=== PATIENT | female | born 1970 | race Caucasian/White ===

== ENCOUNTER → 2020-03-30 | Outpatient (CLI) | payer OTHER ==
--- NOTE | 2020-03-30 18:05 | KCIC ---
Bilateral digital screening mammograms: Reason for examination: Routine screening. Comparison is made to previous studies dated 05/10/2016 and 04/19/2014. Interpretation was made with the benefit of CAD. The skin and nipples show no abnormalities. No abnormal axillary lymph nodes are seen. The breast parenchyma shows scattered fibroglandular density. (Breast density: Category B.) There appears to be a small nodular density developing at the 8:00 B position of the right breast. Further evaluation with coned compression views and ultrasound is recommended. There are no other dominant masses, suspicious calcifications or architectural distortions. A few benign calcifications are present. Impression: Small nodular density at the 8:00 B position of the right breast. Recommend further evaluation with coned compression views and ultrasound. BI-RADS Category 0: Incomplete. Needs additional imaging evaluation. "Our facility is accredited by the [employer] Mammography [employer]." This patient's information has been entered into a reminder system for the patient to be notified with the results of her examination and a target date for the next mammogram. Electronically signed by: Lissy Shepard MD (03/30/2020 6:02 PM) [email or web address]
== END | disposition home or self-care (01) ==
LOC: KCIC MAMMO 08:43
PROVIDERS: ATTEND Nurse Practitioner Family
DX: Z12.31 Encounter for screening mammogram for malignant neoplasm of breast (principal)
CPT/HCPCS: 77067

== ENCOUNTER → 2020-04-17 | Outpatient (CLI) | payer OTHER ==
--- NOTE | 2020-04-17 14:56 | RAD ---
Examination: DIGITAL DIAGNOSTIC RT History: Reason: CALLBACK RIGHT BREAST / Spl. Instructions: / History: Comparison/Correlation: 04/19/2014, 05/10/2016, 03/30/2020 Findings: Spot compression imaging of the of the posterior right central and outer right breast was performed. Breast density is category B. Scattered fibroglandular density. No mass or suspicious persistent asymmetry identified. Impression: No suspicious finding persists on spot compression imaging. BI-RADS Category 1-negative. Annual screening mammography is recommended. "Our facility is accredited by the [employer] Mammography [employer]." This patient's information has been entered into a reminder system for the patient to be notified with the results of her examination and a target date for the next mammogram. Electronically signed by: Yariel Jurado MD (04/17/2020 2:53 PM) [email or web address]
== END | disposition home or self-care (01) ==
LOC: MAMMO 10:21
PROVIDERS: ATTEND Nurse Practitioner Family
DX: R92.2 Inconclusive mammogram (principal)
CPT/HCPCS: 77065

== ENCOUNTER → 2021-04-18 | Outpatient (CLI) | payer OTHER ==
--- NOTE | 2021-04-18 10:38 | KCIC ---
Bilateral digital screening mammograms: Reason for examination: Routine screening. Comparison is made to previous studies dated back to 04/19/2014. Interpretation was made with the benefit of CAD. The skin and nipples show no abnormalities. No abnormal axillary lymph nodes are seen. The breast par enchyma shows scattered fibroglandular density. (Breast density: Category B.) There are no dominant m asses, suspicious calcifications or architectural distortions. A few benign calcifications are again seen. Impression: No evidence of malignancy. Recommend routine screening. BI-RADS Category 2: Benign. "Our facility is accredited by the [employer] Mammography [employer]." This patient's information has been entered into a reminder system for the patient to be notified wit h the results of her examination and a target date for the next mammogram. Electronically signed by: Lissy Shepard MD (04/18/2021 10:36 AM) [email or web address]
== END ==
LOC: KCIC MAMMO 09:51
PROVIDERS: ATTEND Family Medicine
DX: Z12.31 Encounter for screening mammogram for malignant neoplasm of breast (principal)
CPT/HCPCS: 77067

== ENCOUNTER → 2021-08-07 | Outpatient (CLI) | payer OTHER ==
--- NOTE | 2021-08-07 17:22 | KCIC ---
US THYROID History: Reason: LUMP ON NECK / Spl. Instructions: / History: Comparison: None. Technique: Multiple grayscale and color Doppler images of the thyroid gland were obtained. Findings: Right thyroid lobe: 5.1 x 2.1 x 2.1 cm. Homogeneous echotexture. Left thyroid lobe: 4.2 x 1.6 x 1.3 cm. Homogeneous echotexture. Isthmus: 0.3 cm. -Mixed cystic and solid right mid thyroid nodule measures 2.4 x 1.8 x 1.6 cm with regions of hypoecho genicity. TI-RADS 3. The nodule corresponds patient's palpable abnormality. ACR Thyroid Imaging, Reporting And Data System (TI-RADS): White Paper Of The ACR TI-RADS Committee. J ournal of the [employer], volume 14, issue 5, pages 587-595 (February 2017). IMPRESSION: 1. TI-RADS 3 right thyroid nodule. Recommend one-year ultrasound follow-up. Electronically signed by: Billy Burden DO (08/07/2021 5:20 PM) [id number]
== END ==
LOC: KCIC US 14:38
PROVIDERS: ATTEND Nurse Practitioner
DX: E04.1 Nontoxic single thyroid nodule (principal); R53.83 Other fatigue; R22.1 Localized swelling, mass and lump, neck
CPT/HCPCS: 76536

== ENCOUNTER → 2021-09-07 | Outpatient (CLI) | payer OTHER ==
[~2021-09-07] MED LIST: LIDOCAINE 1% Multi-Dose 20 ML VIAL. INJ ONE
--- NOTE | 2021-09-07 10:15 | RAD ---
CLINICAL HISTORY: Reason: RIGHT THYROID NODULE / Spl. Instructions: / History: COMPARISON: None available. PROCEDURE: Preliminary sonographic images of the right thyroid nodule were obtained. Mixed solid and cystic nod ule is again seen. The procedure and risks of ultrasound guided aspiration were explained to the patient and informed wr itten consent obtained. Verification pause was observed. Laterality was confirmed. The site of aspi ration was marked. Using standard sterile technique, 4 25 G fine needle aspirations of the right thyroid nodule were ob tained. There were no immediate complications. IMPRESSION: 1. Successful ultrasound-guided FNA of the right thyroid nodule without complication. Electronically signed by: Cristopher Black MD (09/07/2021 10:13 AM) [email or web address]
== END | disposition home or self-care (01) ==
LOC: US 09:45
PROVIDERS: ATTEND Registered Nurse
DX: E04.1 Nontoxic single thyroid nodule (principal)
CPT/HCPCS: 10005